=== PATIENT | male | born 1975 | race Caucasian/White ===

== ENCOUNTER 2018-10-05 20:06 | Emergency (ER) | payer OTHER ==
--- NOTE | 2018-10-05 20:20 | EDPHY ---
H & P Time Seen by Provider: 10/05/18 20:17 HPI/ROS: CHIEF COMPLAINT: Altered mental status HISTORY OF PRESENT ILLNESS: The patient is a 43-year-old male who was found in front of the [facility] was altered mental status. The patient reports drinking alcohol this evening. The patient has no specific complaints. Patient denies chest pain, shortness of breath or abdominal pain. Patient told EMS that he used LSD. However he does not report LSD use to me. REVIEW OF SYSTEMS: 10 systems were reveiwed and are negative with the exception of the elements mentioned in the history of present illness. (Dolores Bello) Past Medical/Surgical History: Includes alcohol abuse social history: Patient is homeless (Dolores Bello) Physical Exam: Vitals noted GENERAL: Intoxicated appearing, alert. HEENT: Eyes normal to inspection, normal pharynx, no signs of dehydration. NECK: Normal, supple. RESPIRATORY: Clear to auscultation bilaterally, no rales, rhonchi or wheezing. CVS: Regular rate and rhythm, no rubs, murmurs, or gallops. ABDOMEN: Soft, nontender, nondistended, no organomegaly. BACK: Normal to inspection, no CVA tenderness. SKIN: Normal color, no rash, warm, dry. No pallor. EXTREMITIES: No pedal edema, no calf tenderness, no Homans sign or cords, no joint swelling. NEURO/PSYCH: Intoxicated appearing, normal motor sensory exam. No obvious cranial nerve deficit. (Dolores Bello S) Constitutional: Initial Vital Signs Temperature (C) 36.6 C 10/05/18 20:20 Heart Rate 102 H 10/05/18 20:20 Respiratory Rate 20 10/05/18 20:20 Blood Pressure 121/83 H 10/05/18 20:20 O2 Sat (%) 92 10/05/18 20:20 O2 Delivery Mode Nasal Cannula O2 (L/minute) 2 Allergies/Adverse Reactions: No Known Allergies Allergy (Unverified 10/05/18 20:20) Home Medications: Medication Instructions Recorded NK [No Known Home Meds] 10/05/18 Medical Decision Making ED Course/Re-evaluation: In the emergency department I discussed possible etiologies with the patient. I answered all his questions. At this time I do not feel the patient needs imaging or laboratory studies. 2100: Patient is doing well. He has no new complaints. He is answering questions. He still seems intoxicated on exam. Patient is signed out to Dr. Ayon at change of shift. My plan is for the patient be discharged once he metabolizes his alcohol. (Dolores Bello) Differential Diagnosis: My differential includes but is not limited to alcohol abuse, drug abuse, electrolyte abnormality, sugar abnormality, CVA, head injury (Dolores Bello) Other Provider: The patient was turned over to me pending sobriety. He is still intoxicated 11: 00 p.m. and will be turned over to Dr. Briggs at shift change. (Arcadio Ayon) 1:18 a.m.- Patient is now clinically sober, walking without difficulty. He does not have any complaints. He will be discharged to the [facility]term. (Pamela Briggs) Departure - Departure Disposition: Home, Routine, Self-Care Clinical Impression: Alcoholic intoxication Qualifiers: Complication of substance-induced condition: uncomplicated Qualified Code(s): F10.920 - Alcohol use, unspecified with intoxication, uncomplicated Condition: Good Instructions: Abuse of Alcohol (ED) Additional Instructions: Return with worsening symptoms or any other concerns. Referrals: [facility],. [Clinic] - 5-7 days, call for appt.
[2018-10-06 01:22] VITALS: BP 102/85
== END 2018-10-06 01:35 | disposition home or self-care (01) ==
DX: F10.920 Alcohol use, unspecified with intoxication, uncomplicated (principal); Z59.0 Homelessness